=== PATIENT | female | born 1955 | race Two or more races ===

== ENCOUNTER 2023-10-19 11:04 | Emergency (ER) | payer OTHER ==
[~2023-10-19] VITALS: Ht 157.5 cm; Wt 71.2 kg
[2023-10-19] MEDS ORDERED: NORVASC5 MG PO (11:46)
[2023-10-19] MEDS ORDERED: CLINDAMYCIN PHOSPHATE 150 MG/ML (600mg) IV ONE (12:45)
[2023-10-19] MEDS ORDERED: FAMOtidine 10 MG/ML (4ML VIAL) IV ONE (12:45)
[2023-10-19] MEDS ORDERED: 0.9 % SODIUM CHLORIDE 1,000 ML IV ONE (12:45)
[2023-10-19] MEDS ORDERED: CLINDAMYCIN PHOSPHATE 150 MG/ML (900mg) ONE (12:57)
[2023-10-19] MEDS ORDERED: FAMOTIDINE/PF 20 MG/2 ML VIAL ONE (12:58)
[2023-10-19 13:47] LABS: HEMATOCRIT 42.1 % (36.0-45.00); HEMOGLOBIN 14.5 g/dL (12.0-15.00); MEAN CELL VOLUME 90.6 fL (80.00-100.00); MEAN CORPUSCULAR HEMOGLOBIN 31.3 pg (27.00-32.0); MEAN CORPUSCULAR HGB CONC 34.5 g/dl (32.0-36.0); PLATELET COUNT 297 K/uL (150-450); RED BLOOD COUNT 4.64 M/uL (4.00-6.00); RED CELL DISTRIBUTION WIDTH 13.9 % (11.5-14.5)
[2023-10-19 13:58] LABS: ERYTHROCYTE SEDIMENTATION RATE 10 mm/hr
[2023-10-19 14:35] LABS: ALBUMIN 4.4 gm/dL (3.4-5.0); BILIRUBIN TOTAL 0.51 mg/dL (0.3-1.2); CALCIUM 9.9 mg/dL (8.5-10.1); CREATININE SERUM 0.94 mg/dL (0.55-1.02); GFR 59.04; GLOBULINA 3.4 G/DL (2.4-3.5); POTASSIUM 4.32 mEq/L (3.5-5.1); TOTAL PROTEIN 7.8 gm/dL (6.4-8.2)
[2023-10-19 14:36] LABS: C-REACTIVE PROTEIN 0.59 MG/DL (0.00-0.29)
[2023-10-19 14:56] LABS: URINE APPEARANCE Clear; URINE BILIRRUBIN Negative (NEGATIVE); URINE BLOOD Negative; URINE COLOR Yellow; URINE GLUCOSE Negative (NEGATIVE); URINE KETONE Negative (NEGATIVE); URINE LEUKOCYTE Small; URINE NITRATE Negative; URINE PROTEIN Negative (NEGATIVE); URINE UROBILINOGEN 0.2 E.U./dl
[2023-10-19 14:59] LABS: URINE BACTERIA 143.5 uL (0.0-1933); URINE EPITHELIAL CELLS 46.3 uL (0.0-38.8); URINE RBC 4.8 uL (0.0-20.8); URINE WBC 43.4 uL (0.0-23.2)
[2023-10-19] MEDS ORDERED: PEPCID AC20 MG PO (15:34)
== END 2023-10-19 15:48 | disposition home or self-care (01) ==
LOC: ER 11:05
PROVIDERS: General Practice
DX: T81.41XA Infection following a procedure, superficial incisional surgical site, initial encounter (principal); Z88.0 Allergy status to penicillin; Z88.6 Allergy status to analgesic agent; Z98.1 Arthrodesis status